=== PATIENT | male | born 1965 | race American Indian/Alaskan Native ===

== ENCOUNTER 2016-11-03 19:10 | Inpatient (IN) | payer OTHER ==
[2016-11-03] MEDS ORDERED: Sodium Chloride 0.9% 1,000 ML IV ONE (20:20)
[2016-11-03] MEDS ORDERED: Sodium Chloride 0.9% 1,000 ML ONE ×2 (20:39→22:33)
[2016-11-03 20:41] LABS: BASO % 0.4 % (0.0-2.0); EOS # 0.1 K/uL (0.0-0.7); EOS % 0.9 % (0.0-4.0); HEMOGLOBIN 15.9 g/dL (12.0-18.0); LYMPH # 0.9 K/uL (1.0-4.3); LYMPH % 11.2 % (20.0-40.0); MEAN CELL VOLUME 98.4 fL (80.0-94.0); MEAN CORPUSCULAR HEMOGLOBIN 32.8 pg (27.0-31.0); MEAN CORPUSCULAR HGB CONC 33.4 g/dL (33.0-37.0); MEAN PLATELET VOLUME 10.7 fL (7.2-11.7); MONO # 0.7 K/uL (0.0-0.8); MONO % 8.2 % (0.0-10.0); NEUT # 6.5 K/uL (1.8-7.0); NEUT % 79.3 % (50.0-75.0); RBC 4.83 Mil/uL (4.40-5.90); RED CELL DISTRIBUTION WIDTH 14.1 % (11.5-14.5); WHITE BLOOD COUNT 8.2 K/uL (4.8-10.8)
[2016-11-03 20:48] LABS: SQUAMOUS EPITHIAL < 1 /hpf (0-5); URINE BACTERIA RARE (<OCC); URINE BILIRUBIN NEGATIVE (NEGATIVE); URINE BLOOD NEGATIVE (NEGATIVE); URINE CLARITY Clear (Clear); URINE COLOR Yellow (YELLOW); URINE GLUCOSE (UA) 3+ mg/dL (Normal); URINE LEUKOCYTE ESTERASE TRACE Leu/uL (Negative); URINE NITRATE NEGATIVE (NEGATIVE); URINE PROTEIN 2+ mg/dL (NEGATIVE); URINE UROBILINOGEN NORMAL mg/dL (0.2-1.0)
[2016-11-03 20:49] LABS: ALBUMIN 4.4 g/dL (3.5-5.0)
[2016-11-03 20:51] LABS: GFR AFRICAN-AMERICAN > 60; GFR NON-AFRICAN AMERICAN > 60
[2016-11-03 20:52] LABS: ALB/GLOB RATIO 1.2 (1.0-2.1); ALT/SGPT 30 U/L (21-72); AST/SGOT 18 U/L (17-59); BLOOD UREA NITROGEN 22 mg/dL (9-20); CALCIUM 10.1 mg/dl (8.6-10.4); LIPASE 1420 U/L (23-300)
[2016-11-03 20:54] LABS: PROTHROMBIN TIME 11.4 SECONDS (9.7-12.2)
--- NOTE | 2016-11-03 22:04 | US ---
EXAM: US Abdomen Limited, Right Upper Quadrant CLINICAL HISTORY: 51 years old, male; Pain; Abdominal pain; Epigastric; Additional info: Epigastric/ruq pain TECHNIQUE: Real-time ultrasound of the right upper quadrant with image documentation. EXAM DATE/TIME: 11/03/2016 8:22 PM COMPARISON: There are no prior studies for comparison. FINDINGS: Liver: Texture of the liver is heterogeneous. There are geographic regions of increased attenuation. There is a 2.2 x 1.7 x 2 cm cyst in the chaparro hepatis.There is hepatopedal flow in the main portal vein. Gallbladder: Gallbladder is distended with no stones, sludge or wall thickening. Common bile duct: Common bile duct measures 5.5 mm in diameter. Pancreas: Pancreas is partially obscured by bowel gas. Visualized portion is echogenic. Pancreatic duct is dilated Right kidney: Right kidney is unremarkable Aorta: Visualized portions of the aorta and inferior vena cava are unremarkable. IMPRESSION: Fatty infiltration of the liver with focal fatty sparing; no gallstones or biliary ductal dilatation; limited evaluation of the pancreas, dilated pancreatic duct correlation with pancreatic enzyme levels advised Patient was not tender over the gallbladder
--- NOTE | 2016-11-03 22:18 | C.PDOC ---
Time Seen by Provider: 11/03/16 19:54 Chief Complaint (Nursing): Abdominal Pain History Per: Patient, Family Onset/Duration Of Symptoms: Days (4) Severity: Moderate Location Of Pain/Discomfort: RUQ, Epigastric Radiation Of Pain To:: None Quality Of Discomfort: "Pain" Associated Symptoms: Nausea, Vomiting Exacerbating Factors: Food Alleviating Factors: None Last Bowel Movement: Days Ago (4) Additional History Per: Prior Records Past Medical History Reviewed: Historical Data, Nursing Documentation, Vital Signs Vital Signs: Last Vital Signs Temp 97.8 F 11/03/16 19:17 Pulse 110 H 11/03/16 19:17 Resp 18 11/03/16 19:17 BP 140/100 H 11/03/16 19:17 Pulse Ox 99 11/03/16 19:17 - Medical History PMH: Diabetes, HTN, Pancreatitis Surgical History: Appendectomy Family History: States: Unknown Family Hx - Social History Hx Tobacco Use: Yes Hx Alcohol Use: Yes Hx Substance Use: No Review Of Systems Except As Marked, All Systems Reviewed And Found Negative. Constitutional: Negative for: Fever, Weakness Cardiovascular: Negative for: Chest Pain Respiratory: Negative for: Shortness of Breath Gastrointestinal: Positive for: Nausea, Vomiting, Abdominal Pain. Negative for : Diarrhea, Melena, Hematochezia, Hematemesis Genitourinary: Negative for: Dysuria, Hematuria Musculoskeletal: Negative for: Neck Pain, Back Pain Skin: Negative for: Rash Neurological: Negative for: Weakness, Numbness Physical Exam - Physical Exam Appears: No Acute Distress Skin: Normal Color, Warm, Dry, No Rash Head: Atraumatic, Normacephalic Eye(s): bilateral: Normal Inspection, PERRL, EOMI Neck: Normal ROM, Supple Cardiovascular: Rhythm Regular Respiratory: Normal Breath Sounds, No Accessory Muscle Use Gastrointestinal/Abdominal: Soft, Tenderness (Epigastric/RUQ) Back: No CVA Tenderness Extremity: Normal ROM Neurological/Psych: Oriented x3, Normal Motor, Normal Sensation ED Course And Treatment - Laboratory Results Result Diagrams: 11/03/16 20:37 11/03/16 20:37 Lab Interpretation: Abnormal Interpretation Of Abnormal: Elevated Lipase. Hyperglycemia. O2 Sat by Pulse Oximetry: 99 Pulse Ox Interpretation: Normal - Radiology CXR: Interpreted by Me, Viewed By Me CXR Interpretation: Yes: No Acute Disease - CT Scan/US RUQ Sono Other Rad Studies (CT/US): Read By Radiologist, Radiology Report Reviewed CT/US Interpretation: IMPRESSION: Fatty infiltration of the liver with focal fatty sparing; no. gallstones or biliary ductal dilatation; limited evaluation of the pancreas,. dilated pancreatic duct correlation with pancreatic enzyme levels advised Obstructed Series Other Rad Studies (CT/US): Read By Radiologist, Radiology Report Reviewed CT/US Interpretation: NSBGP Progress - Interventions Interventions:: Observation, Intravenous fluid - Medications Administered Intravenous: Antiemetic, Opiate, Other (PPI) - Data Reviewed Data Reviewed: Lab, Diagnostic imaging, Old records - Patient Status Patient status: Partially improved - Continuity of Care Discussed patient case with:: Patient, Family-HIPPA compliant, ED Nurse, On- call PMD-pt unassigned - Patient Plan Patient Plan: Admission Disposition Discussed With : Anibal Dewitt Comment: He accepted pt on his service. Doctor Will See Patient In The: Hospital Counseled Patient/Family Regarding: Studies Performed, Diagnosis - Disposition Disposition: HOSPITALIZED Disposition Time: 22:21 Condition: SERIOUS - POA Present On Arrival: Poor Glycemic Control - Clinical Impression Clinical Impression: Acute pancreatitis, Pancreatic duct dilated, Uncontrolled diabetes mellitus
[2016-11-03] MEDS ORDERED: Morphine 4 MG/ML VIAL ONE (22:32)
[2016-11-03] MEDS: Sodium Chloride 0.9% 1,000 ML IV SCH (22:46)
[2016-11-04 02:04] LABS: BARBITURATES, UR NEGATIVE (NEGATIVE); BENZODIAZEPINES, UR NEGATIVE (NEGATIVE); OPIATES, UR NEGATIVE (NEGATIVE); PHENCYCLIDINE, UR NEGATIVE (NEGATIVE)
[2016-11-04] MEDS: (Novolin R) Insulin Human Regular 100 units/ml vial SC SCH ×4 (08:20→21:26)
[2016-11-04] MEDS: Sodium Chloride 0.9% 1,000 ML IV SCH (08:22)
[2016-11-04] MEDS: Lactated Ringer's 1,000 ML IV SCH ×4 (09:45→21:26)
[2016-11-04] MEDS: Enoxaparin 30 mg Syringe SC SCH (10:41)
--- NOTE | 2016-11-04 12:32 | RAD ---
PROCEDURE: Radiographs of the chest and abdomen (obstructive series) HISTORY: abd pain, vomiting COMPARISON: No prior. TECHNIQUE: AP radiograph of the chest, with upright and supine radiographs of the abdomen. FINDINGS: CHEST: Lungs: Clear. Cardiovascular: Normal size heart. No pulmonary vascular congestion. Pleura: No pleural fluid. No pneumothorax. Other findings: None. ABDOMEN AND PELVIS: Bowel: Unremarkable bowel gas pattern. No evidence of mechanical obstruction. Free air: None. Bones: Unremarkable. Other findings: No suspicious intra-abdominal calcifications. IMPRESSION: Unremarkable radiographs of chest and abdomen. No evidence of mechanical bowel obstruction.
--- NOTE | 2016-11-04 16:01 | CP.PCM.CON ---
<Taylor Monson - Last Filed: 11/04/16 16:11> History of Present Illness - History of Present Illness History of Present Illness: GI Fellow PGY4 Consult Note This is a 51yM with a pmhx of pancreatitis in the 1980s and due to alcohol use, DM, HTN. Pt pw co abdominal pain, N/V since Monday. Pain has progressively gotten worse so decided to come to ER. Pain is in the epigastric area with radiation to back and assoicted N/V unable to tolerate liquids or solids. Pt reports is last drink was Monday with a 16 oz beer and that he only drinks two 160z beers on weekends. Pt denies any complications from prior pancreatitis and did not require any drainage or antibiotic therapy. Pt has not had any prior EGD/Colonoscopy. ROS: A 12pt ROS was obtained and was negative except as mentioned above. PmHx: As stated in HPI PsHx: Appendectomy FHx: negative for liver/pancreatic disease, no colon CA SHx: positive for tobacco use, positive for ETOH two 16oz beers on weekends only , no illicit drug use Past Patient History - Infectious Disease Hx of Infectious Diseases: None - Past Medical History & Family History Past Medical History?: Yes - Past Social History Smoking Status: Current Some Days Smoker - CARDIAC Hx Cardiac Disorders: Yes Hx Hypertension: Yes - PULMONARY Hx Respiratory Disorders: No - NEUROLOGICAL Hx Neurological Disorder: No - HEENT Hx HEENT Problems: No Other/Comment: Wears Eyeglasses for distance - RENAL Hx Chronic Kidney Disease: No - ENDOCRINE/METABOLIC Hx Endocrine Disorders: Yes Hx Diabetes Mellitus Type 2: Yes - HEMATOLOGICAL/ONCOLOGICAL Hx Blood Disorders: No - INTEGUMENTARY Hx Dermatological Problems: No - MUSCULOSKELETAL/RHEUMATOLOGICAL Hx Musculoskeletal Disorders: No Hx Falls: No - GASTROINTESTINAL Hx Gastrointestinal Disorders: Yes Hx Pancreatitis: Yes - GENITOURINARY/GYNECOLOGICAL Hx Genitourinary Disorders: No - PSYCHIATRIC Hx Substance Use: Yes (Last use 2010-Heroin) - SURGICAL HISTORY Hx Surgeries: Yes Hx Appendectomy: Yes - ANESTHESIA Hx Anesthesia: Yes Hx Anesthesia Reactions: No Hx Malignant Hyperthermia: No Has any member of the family had a problem w/ anesthesia?: No Meds Allergies/Adverse Reactions: Allergies Allergy/AdvReac Type Severity Reaction Status Date / Time seafood Allergy Uncoded 11/03/16 19:16 - Medications Medications: Current Medications Enoxaparin Sodium (Lovenox) 30 mg SC DAILY [facility] Last Admin: 11/04/16 10:41 Dose: 30 mg Famotidine (Pepcid) 20 mg IVP Q12 [facility] Last Admin: 11/04/16 10:42 Dose: 20 mg Lactated Ringer's (Lactated Ringer's) 1,000 mls @ 250 mls/hr IV .Q4H [facility] Last Admin: 11/04/16 14:50 Dose: 250 mls/hr Insulin Human Regular (Novolin R) 0 unit SC ACHS [facility] PRN Reason: Protocol Last Admin: 11/04/16 11:58 Dose: Not Given Morphine Sulfate (Morphine) 2 mg IVP Q4 PRN PRN Reason: Pain, moderate (4-7) Last Admin: 11/04/16 06:57 Dose: 2 mg Ondansetron HCl (Zofran Inj) 4 mg IVP Q4 PRN PRN Reason: Pain, moderate (4-7) Physical Exam - Constitutional Appears: Non-toxic Additional comments: Uncomfortable - Head Exam Head Exam: ATRAUMATIC, NORMAL INSPECTION, NORMOCEPHALIC - Eye Exam Eye Exam: EOMI, Normal appearance, PERRL Pupil Exam: PERRL - ENT Exam ENT Exam: Mucous Membranes Moist, Normal Exam - Neck Exam Neck exam: Positive for: Full Rom, Normal Inspection - Respiratory Exam Respiratory Exam: Clear to Auscultation Bilateral, NORMAL BREATHING PATTERN - Cardiovascular Exam Cardiovascular Exam: REGULAR RHYTHM, RRR, +S1, +S2 - GI/Abdominal Exam GI & Abdominal Exam: Normal Bowel Sounds, Soft, Tenderness. absent: Distended, Organomegaly Additional comments: Moderate TTP epigastric - Rectal Exam Rectal Exam: Deferred - Extremities Exam Extremities exam: Positive for: full ROM, normal inspection. Negative for: pedal edema, tenderness - Back Exam Back exam: NORMAL INSPECTION, tenderness - Neurological Exam Neurological exam: Alert, Oriented x3 - Psychiatric Exam Psychiatric exam: Normal Affect, Normal Mood - Skin Skin Exam: Dry, Intact, Normal Color, Warm Results - Vital Signs Recent Vital Signs: Last Vital Signs Temp 98.5 F 11/04/16 07:59 Pulse 86 11/04/16 07:59 Resp 20 11/04/16 07:59 BP 133/86 11/04/16 07:59 Pulse Ox 98 11/04/16 07:59 - Labs Result Diagrams: 11/03/16 20:37 11/03/16 20:37 Labs: Laboratory Results - last 24 hr 11/04/16 11/04/16 11/04/16 01:24 01:34 06:30 POC Glucose (mg/dL) 254 H 192 H Urine Opiates Screen Negative Urine Methadone Screen Negative Ur Barbiturates Screen Negative Ur Phencyclidine Scrn Negative Ur Amphetamines Screen Negative U Benzodiazepines Scrn Negative U Oth Cocaine Metabols Negative U Cannabinoids Screen Negative 11/04/16 11:11 POC Glucose (mg/dL) 204 H Urine Opiates Screen Urine Methadone Screen Ur Barbiturates Screen Ur Phencyclidine Scrn Ur Amphetamines Screen U Benzodiazepines Scrn U Oth Cocaine Metabols U Cannabinoids Screen Assessment & Plan - Assessment and Plan (Free Text) Assessment: This is a 51 yM with a pmHx of 2 prior episodes of pancreatitis, HTN, DM, pw co abdominal pain, N/V. 1. Acute Pancreatitis 2. Dilated Pancreatic Duct on Imaging 3. HTN 4. DM Plan: -Acute Pancreatitis likely from alcohol, no sign of gallstones on imaging, will order lipid profile -Continue aggressive IVF hydration with LR @ 250 cc/hr, monitor BUN/Hct -Continue pain control -NPO -Will order CT scan Pancreatic Protocol to evaluate pancreas for any calcifications and since pancreatic duct dilation on US, increased risk of malignancy with recurrent pancreatitis -Pt has allergy to all seafood so will pre-medicate with prednisone 50mg at 13hrs, 7hrs, 1 hr prior to scan and Benadryl 50mg 1hr prior -Will continue to follow clinical course <Etienne Dacosta - Last Filed: 11/04/16 19:06> Meds - Medications Medications: Current Medications Diphenhydramine HCl (Benadryl) 50 mg PO ONCE ONE Stop: 11/05/16 08:01 Enoxaparin Sodium (Lovenox) 30 mg SC DAILY [facility] Last Admin: 11/04/16 10:41 Dose: 30 mg Famotidine (Pepcid) 20 mg IVP Q12 [facility] Last Admin: 11/04/16 10:42 Dose: 20 mg Lactated Ringer's (Lactated Ringer's) 1,000 mls @ 250 mls/hr IV .Q4H [facility] Last Admin: 11/04/16 14:50 Dose: 250 mls/hr Insulin Human Regular (Novolin R) 0 unit SC ACHS [facility] PRN Reason: Protocol Last Admin: 11/04/16 17:43 Dose: Not Given Morphine Sulfate (Morphine) 2 mg IVP Q4 PRN PRN Reason: Pain, moderate (4-7) Last Admin: 11/04/16 06:57 Dose: 2 mg Ondansetron HCl (Zofran Inj) 4 mg IVP Q4 PRN PRN Reason: Pain, moderate (4-7) Prednisone (Prednisone Tab) 40 mg PO Q6H [facility] Stop: 11/05/16 08:01 Prednisone (Prednisone Tab) 10 mg PO Q6H [facility] Stop: 11/05/16 08:01 Results - Vital Signs Recent Vital Signs: Last Vital Signs Temp 98.2 F 11/04/16 15:51 Pulse 90 11/04/16 15:51 Resp 18 11/04/16 15:51 BP 147/88 11/04/16 15:51 Pulse Ox 98 11/04/16 15:51 - Labs Result Diagrams: 11/03/16 20:37 11/03/16 20:37 Labs: Laboratory Results - last 24 hr 11/04/16 11/04/16 11/04/16 01:24 01:34 06:30 POC Glucose (mg/dL) 254 H 192 H Urine Opiates Screen Negative Urine Methadone Screen Negative Ur Barbiturates Screen Negative Ur Phencyclidine Scrn Negative Ur Amphetamines Screen Negative U Benzodiazepines Scrn Negative U Oth Cocaine Metabols Negative U Cannabinoids Screen Negative 11/04/16 11/04/16 11:11 16:32 POC Glucose (mg/dL) 204 H 183 H Urine Opiates Screen Urine Methadone Screen Ur Barbiturates Screen Ur Phencyclidine Scrn Ur Amphetamines Screen U Benzodiazepines Scrn U Oth Cocaine Metabols U Cannabinoids Screen Attending/Attestation - Attestation I have personally seen and examined this patient.: Yes I have fully participated in the care of the patient.: Yes I have reviewed all pertinent clinical information: Yes Notes (Text): 11/04/16 19:04 51 year old male with a h/o pancreatitis, DM, HTN admitted with recurrent pancreatitis. 1. Acute Pancreatitis 2. Dilated pancreatic duct Plan: -most likely etoh pancreatitis, though patient doesn't admit to heavy binge drinking, only "social" -no gallstones, check trig -PD dilated, recommend CT panc protocol, may premedicate due to possible shellfish allergy -recommend aggressive IV hydration with LR at 250 /hr as above -etoh and smoking abstinence recommended -npo for now -advance to low fat diet when pain improves
--- NOTE | 2016-11-04 23:12 | CP.PCM.HP ---
History of Present Illness - History of Present Illness History of Present Illness: CC; Epigastric pain HPI: This is a 51yM with a pmhx of pancreatitis in the 1980s and due to alcohol use, DM, HTN. Pt pw co abdominal pain, N/V since Monday. Pain has progressively gotten worse so decided to come to ER. Pain is in the epigastric area with radiation to back and assoicted N/V unable to tolerate liquids or solids. Pt reports is last drink was Monday with a 16 oz beer and that he only drinks two 160z beers on weekends. Pt denies any complications from prior pancreatitis and did not require any drainage or antibiotic therapy. Pt has not had any prior EGD/Colonoscopy. ROS: A 12pt ROS was obtained and was negative except as mentioned above. PmHx: As stated in HPI PsHx: Appendectomy FHx: negative for liver/pancreatic disease, no colon CA SHx: positive for tobacco use, positive for ETOH two 16oz beers on weekends only , no illicit drug use Present on Admission - Present on Admission Any Indicators Present on Admission: Yes Review of Systems - Review of Systems Systems not reviewed;Unavailable: Unstable Vital Signs - Constitutional Constitutional: Fatigue, Fever, Lethargy, Malaise - EENT Eyes: absent: As Per HPI, Blind Spots, Blurred Vision, Change in Vision, Decreased Night Vision, Diplopia, Discharge, Dry Eye, Exophthalmos, Floaters, Irritation, Itchy Eyes, Loss of Peripheral Vision, Pain, Photophobia, Requires Corrective Lenses, Sees Flashes, Spots in Vision, Tunnel Vision, Other Visual Disturbances, Loss of Vision, Other Nose/Mouth/Throat: absent: As Per HPI, Epistaxis, Nasal Congestion, Nasal Discharge, Nasal Obstruction, Nasal Trauma, Nose Pain, Post Nasal Drip, Sinus Pain, Sinus Pressure, Bleeding Gums, Change in Voice, Dental Pain, Dry Mouth, Dysphagia, Halitosis, Hoarsness, Lip Swelling, Mouth Lesions, Mouth Pain, Odynophagia, Sore Throat, Throat Swelling, Tongue Swelling, Facial Pain, Neck Pain, Neck Mass, Other - Gastrointestinal Gastrointestinal: Abdominal Pain, Diarrhea, Dyspepsia - Genitourinary Genitourinary: absent: As Per HPI, Change in Urinary Stream, Difficulty Urinating, Dysuria, Flank Pain, Hematuria, Pyuria, Nocturia, Urinary Incontinence, Urinary Frequency, Urinary Hesitance, Urinary Urgency, Voiding Freq/Small Amts, Freq UTI, Hx Renal/Bladder Calculi, Hx /Renal Surgery, Bladder Distension, Other Past Patient History - Infectious Disease Hx of Infectious Diseases: None - Past Medical History & Family History Past Medical History?: Yes - Past Social History Smoking Status: Current Some Days Smoker - CARDIAC Hx Cardiac Disorders: Yes Hx Hypertension: Yes - PULMONARY Hx Respiratory Disorders: No - NEUROLOGICAL Hx Neurological Disorder: No - HEENT Hx HEENT Problems: No Other/Comment: Wears Eyeglasses for distance - RENAL Hx Chronic Kidney Disease: No - ENDOCRINE/METABOLIC Hx Endocrine Disorders: Yes Hx Diabetes Mellitus Type 2: Yes - HEMATOLOGICAL/ONCOLOGICAL Hx Blood Disorders: No - INTEGUMENTARY Hx Dermatological Problems: No - MUSCULOSKELETAL/RHEUMATOLOGICAL Hx Musculoskeletal Disorders: No Hx Falls: No - GASTROINTESTINAL Hx Gastrointestinal Disorders: Yes Hx Pancreatitis: Yes - GENITOURINARY/GYNECOLOGICAL Hx Genitourinary Disorders: No - PSYCHIATRIC Hx Substance Use: Yes (Last use 2010-Heroin) - SURGICAL HISTORY Hx Surgeries: Yes Hx Appendectomy: Yes - ANESTHESIA Hx Anesthesia: Yes Hx Anesthesia Reactions: No Hx Malignant Hyperthermia: No Has any member of the family had a problem w/ anesthesia?: No Meds Allergies/Adverse Reactions: Allergies Allergy/AdvReac Type Severity Reaction Status Date / Time seafood Allergy Uncoded 11/03/16 19:16 Physical Exam - Constitutional Appears: No Acute Distress - Head Exam Head Exam: ATRAUMATIC, NORMAL INSPECTION, NORMOCEPHALIC - Eye Exam Eye Exam: EOMI, Normal appearance, PERRL Pupil Exam: NORMAL ACCOMODATION, PERRL - Cardiovascular Exam Cardiovascular Exam: REGULAR RHYTHM - GI/Abdominal Exam GI & Abdominal Exam: Normal Bowel Sounds, Tenderness Additional comments: epigastric tenderness - Rectal Exam Rectal Exam: Deferred Results - Vital Signs Recent Vital Signs: Last Vital Signs Temp 98.2 F 11/04/16 15:51 Pulse 90 11/04/16 15:51 Resp 18 11/04/16 15:51 BP 147/88 11/04/16 15:51 Pulse Ox 98 11/04/16 15:51 - Labs Result Diagrams: 11/03/16 20:37 11/03/16 20:37 Labs: Laboratory Results - last 24 hr 11/04/16 11/04/16 11/04/16 01:24 01:34 06:30 POC Glucose (mg/dL) 254 H 192 H Urine Opiates Screen Negative Urine Methadone Screen Negative Ur Barbiturates Screen Negative Ur Phencyclidine Scrn Negative Ur Amphetamines Screen Negative U Benzodiazepines Scrn Negative U Oth Cocaine Metabols Negative U Cannabinoids Screen Negative 11/04/16 11/04/16 11/04/16 11:11 16:32 21:05 POC Glucose (mg/dL) 204 H 183 H 236 H Urine Opiates Screen Urine Methadone Screen Ur Barbiturates Screen Ur Phencyclidine Scrn Ur Amphetamines Screen U Benzodiazepines Scrn U Oth Cocaine Metabols U Cannabinoids Screen Assessment & Plan (1) Acute pancreatitis Assessment and Plan: 51 year old male with a h/o pancreatitis, DM, HTN admitted with recurrent pancreatitis. 1. Acute Pancreatitis 2. Dilated pancreatic duct Plan: -most likely etoh pancreatitis, though patient doesn't admit to heavy binge drinking, only "social" -no gallstones, check trig -PD dilated, recommend CT panc protocol, may premedicate due to possible shellfish allergy -recommend aggressive IV hydration with LR at 250 /hr as above -etoh and smoking abstinence recommended -npo for now -advance to low fat diet when pain improves Status: Acute (2) Pancreatic duct dilated Status: Acute (3) Uncontrolled diabetes mellitus Status: Acute
[2016-11-05] MEDS: Lactated Ringer's 1,000 ML IV SCH ×3 (02:27→23:59)
[2016-11-05] MEDS: (Novolin R) Insulin Human Regular 100 units/ml vial SC SCH ×4 (08:00→21:51)
[2016-11-05 08:41] LABS: BASO % 0.1 % (0.0-2.0); HEMOGLOBIN 13.1 g/dL (12.0-18.0); LYMPH # 0.5 K/uL (1.0-4.3); LYMPH % 8.4 % (20.0-40.0); MEAN CELL VOLUME 98.1 fL (80.0-94.0); MEAN CORPUSCULAR HEMOGLOBIN 33.1 pg (27.0-31.0); MEAN CORPUSCULAR HGB CONC 33.8 g/dL (33.0-37.0); MEAN PLATELET VOLUME 10.5 fL (7.2-11.7); MONO # 0.1 K/uL (0.0-0.8); MONO % 1.6 % (0.0-10.0); NEUT # 5.1 K/uL (1.8-7.0); NEUT % 89.9 % (50.0-75.0); PLATELET COUNT 179 K/uL (130-400); RBC 3.96 Mil/uL (4.40-5.90); RED CELL DISTRIBUTION WIDTH 14.1 % (11.5-14.5); WHITE BLOOD COUNT 5.7 K/uL (4.8-10.8)
[2016-11-05 08:45] LABS: ALBUMIN 3.3 g/dL (3.5-5.0)
[2016-11-05 08:48] LABS: ALB/GLOB RATIO 1.1 (1.0-2.1); AST/SGOT 18 U/L (17-59); BLOOD UREA NITROGEN 14 mg/dL (9-20)
[2016-11-05 08:49] LABS: ALT/SGPT 22 U/L (21-72); CALCIUM 8.9 mg/dl (8.6-10.4); HDL CHOLESTEROL 41 mg/dL (30-70)
[2016-11-05 09:03] LABS: GFR AFRICAN-AMERICAN > 60; GFR NON-AFRICAN AMERICAN > 60
[2016-11-05] MEDS: Enoxaparin 30 mg Syringe SC SCH (09:15)
[2016-11-05] MEDS ORDERED: Iodixanol 320 MG/ML 100 ML BOTTLE IV ONE (10:53)
[2016-11-05 11:56] LABS: LYMPHOCYTE 6 % (20-40); MONOCYTE 1 % (0-10); NEUTROPHIL 93 % (50-75); PLATELET ESTIMATE NORMAL (NORMAL); TOTAL CELLS COUNTED 100
[2016-11-05 11:57] LABS: ANISOCYTOSIS SLIGHT; LARGE PLATELETS PRESENT
[2016-11-05 11:58] LABS: GIANT PLATELETS PRESENT
[2016-11-05 12:00] LABS: LDL CHOLESTEROL 125 mg/dL (0-129)
--- NOTE | 2016-11-05 12:15 | CP.PCM.PN ---
<Alvin Cruz - Last Filed: 11/05/16 12:11> Subjective - Date & Time of Evaluation Date of Evaluation: 11/05/16 Time of Evaluation: 10:55 - Subjective Subjective: PGY5 GI Fellow Progress Note Patient seen and examined bedside this morning. The patient admits to persistent epigastric abdominal pain though states significant improvement since admission. He was pre-medicated with Prednisone and Benadryl overnight/ this morning and is about to go for CT pancreatic protocol. He is hungry and asking for liquid diet. Denies nausea, vomiting, fever, chills. 12 system ROS performed and negative except where stated. Objective - Vital Signs/Intake and Output Vital Signs (last 24 hours): Temp Pulse Resp BP Pulse Ox 98.3 F 77 18 154/94 H 96 11/05/16 07:50 11/05/16 07:50 11/05/16 07:50 11/05/16 07:50 11/05/16 07:50 Intake and Output: 11/05/16 11/05/16 06:59 18:59 Output Total 200 Balance -200 - Medications Medications: Current Medications Enoxaparin Sodium (Lovenox) 30 mg SC DAILY [facility] Last Admin: 11/05/16 09:15 Dose: 30 mg Famotidine (Pepcid) 20 mg IVP Q12 [facility] Last Admin: 11/05/16 09:11 Dose: 20 mg Lactated Ringer's (Lactated Ringer's) 1,000 mls @ 250 mls/hr IV .Q4H [facility] Last Admin: 11/05/16 02:27 Dose: 250 mls/hr Insulin Human Regular (Novolin R) 0 unit SC ACHS [facility] PRN Reason: Protocol Last Admin: 11/05/16 08:00 Dose: Not Given Morphine Sulfate (Morphine) 2 mg IVP Q4 PRN PRN Reason: Pain, moderate (4-7) Last Admin: 11/04/16 21:24 Dose: 2 mg Ondansetron HCl (Zofran Inj) 4 mg IVP Q4 PRN PRN Reason: Pain, moderate (4-7) - Labs Labs: 11/05/16 08:19 11/05/16 08:19 PT 11.4 SECONDS (9.7-12.2) 11/03/16 20:37 INR 1.0 11/03/16 20:37 APTT 26 SECONDS (21-34) 11/03/16 20:37 - Constitutional Appears: Non-toxic, No Acute Distress - Eye Exam Eye Exam: EOMI, PERRL - ENT Exam ENT Exam: Mucous Membranes Moist - Respiratory Exam Respiratory Exam: Clear to Ausculation Bilateral. absent: Rales, Rhonchi, Wheezes - Cardiovascular Exam Cardiovascular Exam: RRR, +S1, +S2 - GI/Abdominal Exam GI & Abdominal Exam: Soft, Tenderness, Normal Bowel Sounds. absent: Distended, Firm, Guarding, Rigid, Organomegaly - Extremities Exam Extremities Exam: Normal Inspection. absent: Pedal Edema - Neurological Exam Neurological Exam: Alert, Awake, Oriented x3 - Psychiatric Exam Psychiatric exam: Normal Affect, Normal Mood - Skin Skin Exam: Dry, Warm Assessment and Plan - Assessment and Plan (Free Text) Assessment: Patient is a 51yo male with PMHx significant for EtOH pancreatitis, DM, HTN who presented with acute abdominal pain. -Acute Pancreatitis -Dilated pancreatic duct on U/S Plan: -Awaiting results of CT pancreatic protocol; was pre-treated with Benadryl/ Prednisone overnight -Suspect EtOH as etiology of current event; recommend cessation -Continue aggressive IV fluid resuscitation -Begin liquid diet today; advance as tolerated to low fiber/low fat -Analgesia/antiemetics per primary service -Plan per results of CT and clinical course <Triny Navas MD - Last Filed: 11/05/16 15:37> Objective - Vital Signs/Intake and Output Vital Signs (last 24 hours): Temp Pulse Resp BP Pulse Ox 98.3 F 77 18 154/94 H 96 11/05/16 07:50 11/05/16 07:50 11/05/16 07:50 11/05/16 07:50 11/05/16 07:50 Intake and Output: 11/05/16 11/05/16 06:59 18:59 Output Total 200 Balance -200 - Medications Medications: Current Medications Enoxaparin Sodium (Lovenox) 30 mg SC DAILY [facility] Last Admin: 11/05/16 09:15 Dose: 30 mg Famotidine (Pepcid) 20 mg IVP Q12 [facility] Last Admin: 11/05/16 09:11 Dose: 20 mg Lactated Ringer's (Lactated Ringer's) 1,000 mls @ 250 mls/hr IV .Q4H [facility] Last Admin: 11/05/16 02:27 Dose: 250 mls/hr Insulin Human Regular (Novolin R) 0 unit SC ACHS [facility] PRN Reason: Protocol Last Admin: 11/05/16 12:38 Dose: Not Given Morphine Sulfate (Morphine) 2 mg IVP Q4 PRN PRN Reason: Pain, moderate (4-7) Last Admin: 11/04/16 21:24 Dose: 2 mg Ondansetron HCl (Zofran Inj) 4 mg IVP Q4 PRN PRN Reason: Pain, moderate (4-7) - Labs Labs: 11/05/16 08:19 11/05/16 08:19 PT 11.4 SECONDS (9.7-12.2) 11/03/16 20:37 INR 1.0 11/03/16 20:37 APTT 26 SECONDS (21-34) 11/03/16 20:37 Attending/Attestation - Attestation I have personally seen and examined this patient.: Yes I have fully participated in the care of the patient.: Yes I have reviewed all pertinent clinical information, including history, physical exam and plan: Yes Notes (Text): 11/05/16 15:28 Patient seen and examined at bedside on GI rounds. 51 year old male with a h/o pancreatitis, DM, HTN admitted with recurrent pancreatitis with pancreatic protocol CT showing chronic pancreatitis. Continue aggressive hydration. Advance diet as tolerated. Smoking and alcohol cessation.
--- NOTE | 2016-11-05 13:10 | CT ---
PROCEDURE: CT Abdomen and Pelvis with and without intravenous contrast HISTORY: acute pancreatitis COMPARISON: Comparison is made to the previous right upper quadrant ultrasound dated 11/03/2016 TECHNIQUE: Axial images of the abdomen were obtained in the pre contrast, portal venous and delayed phases of enhancement. Coronal and sagittal reformats were generated. Contrast dose: 100 mL Visipaque. Radiation dose: Total exam DLP = 709.88 mGy-cm. This CT exam was performed using one or more of the following dose reduction techniques: Automated exposure control, adjustment of the mA and/or kV according to patient size, and/or use of iterative reconstruction technique. FINDINGS: LOWER THORAX: No evidence of acute pathology. LIVER: Unremarkable. No gross lesion or ductal dilatation. GALLBLADDER AND BILE DUCTS: Unremarkable. PANCREAS: The pancreas is heterogeneous. Severe atrophic changes are seen in the pancreas associated with moderate dietitian of the main pancreatic duct especially at the pancreatic tail. There are foci of calcifications seen suggestive of chronic pancreatitis. No evidence of enhancing mass lesion in the pancreas P SPLEEN: Unremarkable. ADRENALS: Unremarkable. No mass. KIDNEYS AND URETERS: Unremarkable. No hydronephrosis. No solid mass. VASCULATURE: Unremarkable. No aortic aneurysm. BOWEL: Unremarkable. No obstruction. No gross mural thickening. APPENDIX: Normal appendix. PERITONEUM: Unremarkable. No free fluid. No free air. LYMPH NODES: Unremarkable. No enlarged lymph nodes. BLADDER: Diffuse urinary bladder wall thickening is noted. REPRODUCTIVE: [id number] enlarged prostate. BONES: No acute fracture. OTHER FINDINGS: None. IMPRESSION: Heterogeneous attenuation of the pancreas. Severe pancreatic atrophy associated with moderate dilatation of the main pancreatic duct. Mild inflammatory changes around the pancreatic body and tail suspicious for pancreatitis. Foci of calcification in the pancreas also suggestive of chronic pancreatitis. No evidence of enhancing mass lesion in the pancreas. If clinically warranted further assessment by MRI may be obtained.
[2016-11-05] MEDS ORDERED: Potassium Chloride 20 mEq/15 ml LIQ UD PO ONE (21:30)
[2016-11-06] MEDS: Lactated Ringer's 1,000 ML IV SCH ×3 (00:45→09:12)
--- NOTE | 2016-11-06 01:38 | CP.PCM.PN ---
Subjective - Date & Time of Evaluation Date of Evaluation: 11/05/16 Time of Evaluation: 18:00 - Subjective Subjective: Patient seen and examined bedside this morning. The patient admits to persistent epigastric abdominal pain though states significant improvement since admission. He was pre-medicated with Prednisone and Benadryl overnight/ this morning and is about to go for CT pancreatic protocol. He is hungry and asking for liquid diet. Denies nausea, vomiting, fever, chills. Objective - Vital Signs/Intake and Output Vital Signs (last 24 hours): Temp Pulse Resp BP Pulse Ox 98.2 F 73 20 136/81 99 11/05/16 23:50 11/05/16 23:50 11/05/16 23:50 11/05/16 23:50 11/05/16 23:50 Intake and Output: 11/05/16 11/06/16 18:59 06:59 Intake Total 1999 Balance 1999 - Medications Medications: Current Medications Enoxaparin Sodium (Lovenox) 30 mg SC DAILY [facility] Last Admin: 11/05/16 09:15 Dose: 30 mg Famotidine (Pepcid) 20 mg IVP Q12 [facility] Last Admin: 11/05/16 21:52 Dose: 20 mg Lactated Ringer's (Lactated Ringer's) 1,000 mls @ 250 mls/hr IV .Q4H [facility] Last Admin: 11/05/16 23:59 Dose: 250 mls/hr Insulin Human Regular (Novolin R) 0 unit SC ACHS [facility] PRN Reason: Protocol Last Admin: 11/05/16 21:51 Dose: 2 unit Morphine Sulfate (Morphine) 2 mg IVP Q4 PRN PRN Reason: Pain, moderate (4-7) Last Admin: 11/05/16 22:23 Dose: 2 mg Ondansetron HCl (Zofran Inj) 4 mg IVP Q4 PRN PRN Reason: Pain, moderate (4-7) - Labs Labs: 11/05/16 08:19 11/05/16 08:19 PT 11.4 SECONDS (9.7-12.2) 11/03/16 20:37 INR 1.0 11/03/16 20:37 APTT 26 SECONDS (21-34) 11/03/16 20:37 - Constitutional Appears: No Acute Distress - Head Exam Head Exam: ATRAUMATIC, NORMAL INSPECTION, NORMOCEPHALIC - Eye Exam Eye Exam: EOMI, Normal appearance, PERRL, Scleral icterus Pupil Exam: NORMAL ACCOMODATION, PERRL - ENT Exam ENT Exam: Mucous Membranes Moist, Normal Exam - Respiratory Exam Respiratory Exam: Clear to Ausculation Bilateral, NORMAL BREATHING PATTERN - Cardiovascular Exam Cardiovascular Exam: REGULAR RHYTHM, +S1, +S2. absent: Murmur Assessment and Plan (1) Acute pancreatitis Assessment & Plan: 51 year old male with a h/o pancreatitis, DM, HTN admitted with recurrent pancreatitis with pancreatic protocol CT showing chronic pancreatitis. Continue aggressive hydration. Advance diet as tolerated. Smoking and alcohol cessation. Status: Acute (2) Pancreatic duct dilated Status: Acute (3) Uncontrolled diabetes mellitus Status: Acute
[2016-11-06] MEDS: (Novolin R) Insulin Human Regular 100 units/ml vial SC SCH ×3 (08:18→17:33)
[2016-11-06] MEDS: Enoxaparin 30 mg Syringe SC SCH (09:10)
[2016-11-06] MEDS: (Lantus) Insulin Glargine, Recombinant SC SCH ×2 (09:11→17:33)
[2016-11-06] MEDS ORDERED: Lactated Ringer's 1,000 ML IV SCH (09:18)
--- NOTE | 2016-11-06 10:22 | CP.PCM.PN ---
<Alvin Cruz - Last Filed: 11/06/16 13:26> Subjective - Date & Time of Evaluation Date of Evaluation: 11/06/16 Time of Evaluation: 08:20 - Subjective Subjective: PGY5 GI Fellow Progress Note Patient seen and examined bedside this morning. The patient admits to continued epigastric pain though admits improved since admission. Tolerating clear liquids and eager to eat more. No nausea, vomiting. No events overnight. 12 system ROS performed and negative except where stated. Objective - Vital Signs/Intake and Output Vital Signs (last 24 hours): Temp Pulse Resp BP Pulse Ox 98.6 F 54 L 18 171/92 H 99 11/06/16 07:35 11/06/16 07:35 11/06/16 07:35 11/06/16 07:35 11/06/16 07:35 Intake and Output: 11/06/16 11/06/16 06:59 18:59 Intake Total 2000 Output Total 825 Balance 1175 - Medications Medications: Current Medications Enoxaparin Sodium (Lovenox) 30 mg SC DAILY [facility] Last Admin: 11/06/16 09:10 Dose: 30 mg Famotidine (Pepcid) 20 mg IVP Q12 [facility] Last Admin: 11/06/16 09:11 Dose: 20 mg Lactated Ringer's (Lactated Ringer's) 1,000 mls @ 125 mls/hr IV .Q8H [facility] Last Admin: 11/06/16 09:51 Dose: 125 mls/hr Insulin Glargine (Lantus) 14 unit SC BID [facility] Last Admin: 11/06/16 09:11 Dose: 14 u Insulin Human Regular (Novolin R) 0 unit SC ACHS [facility] PRN Reason: Protocol Last Admin: 11/06/16 08:18 Dose: 2 unit Morphine Sulfate (Morphine) 2 mg IVP Q4 PRN PRN Reason: Pain, moderate (4-7) Last Admin: 11/05/16 22:23 Dose: 2 mg Ondansetron HCl (Zofran Inj) 4 mg IVP Q4 PRN PRN Reason: Pain, moderate (4-7) - Labs Labs: 11/05/16 08:19 11/05/16 08:19 PT 11.4 SECONDS (9.7-12.2) 11/03/16 20:37 INR 1.0 11/03/16 20:37 APTT 26 SECONDS (21-34) 11/03/16 20:37 - Constitutional Appears: Non-toxic, No Acute Distress - Eye Exam Eye Exam: EOMI, PERRL - ENT Exam ENT Exam: Mucous Membranes Moist - Respiratory Exam Respiratory Exam: Clear to Ausculation Bilateral. absent: Rales, Rhonchi, Wheezes - Cardiovascular Exam Cardiovascular Exam: RRR, +S1, +S2 - GI/Abdominal Exam GI & Abdominal Exam: Soft, Normal Bowel Sounds. absent: Distended, Firm, Guarding, Rigid, Tenderness, Organomegaly - Extremities Exam Extremities Exam: Normal Inspection. absent: Pedal Edema - Neurological Exam Neurological Exam: Alert, Awake, Oriented x3 - Psychiatric Exam Psychiatric exam: Normal Affect, Normal Mood - Skin Skin Exam: Dry, Warm Assessment and Plan - Assessment and Plan (Free Text) Assessment: Patient is a 51yo male with PMHx significant for EtOH pancreatitis, DM, HTN who presented with acute abdominal pain. -Acute Pancreatitis -Dilated pancreatic duct on U/S Plan: -Pancreatic protocol CT showing diffuse atrophy of pancreas with PD dilation likely c/w chronic pancreatitis -Will likely benefit from EUS as outpatient -Will start pancreatic enzymes with meals -Decrease LR to 125cc/hr -Advance diet as tolerated: goal of low fat/low fiber -Analgesia/antiemetics per primary service -OK to D/C from GI standpoint <Triny Navas MD - Last Filed: 11/06/16 22:02> Objective - Vital Signs/Intake and Output Vital Signs (last 24 hours): Temp Pulse Resp BP Pulse Ox 98.9 F 88 20 158/89 H 100 11/06/16 15:11 11/06/16 15:11 11/06/16 15:11 11/06/16 15:11 11/06/16 15:11 - Labs Labs: 11/06/16 10:59 11/06/16 10:59 PT 11.4 SECONDS (9.7-12.2) 11/03/16 20:37 INR 1.0 11/03/16 20:37 APTT 26 SECONDS (21-34) 11/03/16 20:37 Attending/Attestation - Attestation I have personally seen and examined this patient.: Yes I have fully participated in the care of the patient.: Yes I have reviewed all pertinent clinical information, including history, physical exam and plan: Yes Notes (Text): 11/06/16 22:01 Patient seen on rounds with GI fellow. This is a 51yo male with PMHx significant for EtOH pancreatitis, DM, HTN who presented with acute abdominal pain with acute on chronic pancreatitis now resolved. Dilated PD on Ct scan likely due to history of alcoholism. Will likely benefit from EUS as outpatient. Will start pancreatic enzymes with meals. Advance diet as tolerated : goal of low fat/low fiber
[2016-11-06 11:10] LABS: HEMOGLOBIN 13.2 g/dL (12.0-18.0); MEAN CELL VOLUME 98.1 fL (80.0-94.0); MEAN CORPUSCULAR HEMOGLOBIN 33.4 pg (27.0-31.0); MEAN PLATELET VOLUME 10.4 fL (7.2-11.7); RBC 3.96 Mil/uL (4.40-5.90); RED CELL DISTRIBUTION WIDTH 13.8 % (11.5-14.5); WHITE BLOOD COUNT 6.6 K/uL (4.8-10.8)
[2016-11-06 11:20] LABS: ALB/GLOB RATIO 1.1 (1.0-2.1); ALT/SGPT 28 U/L (21-72); AST/SGOT 25 U/L (17-59); BLOOD UREA NITROGEN 9 mg/dL (9-20); GFR AFRICAN-AMERICAN > 60; GFR NON-AFRICAN AMERICAN > 60
[2016-11-06 11:21] LABS: CALCIUM 8.8 mg/dl (8.6-10.4)
[2016-11-06 15:14] VITALS: BP 158/89; PULSE 88; RESP 20; TEMP 98.9; O2SAT 100
[2016-11-06] MEDS ORDERED: Potassium Chloride 20 mEq/15 ml LIQ UD PO ONE ×2 (16:00→17:15)
[2016-11-06] MEDS ORDERED: LIPASE/PROTEASE/AMYLASE 4,200 U ECC PO SCH (16:30)
--- NOTE | 2016-11-06 21:28 | CP.PCM.DIS ---
Provider - Provider Date of Admission: 11/03/16 22:22 Attending physician: Anibal Dewitt MD Primary care physician: Dany Wahl DO Time Spent in preparation of Discharge (in minutes): 45 Diagnosis - Discharge Diagnosis (1) Acute pancreatitis Status: Acute (2) Pancreatic duct dilated Status: Acute (3) Uncontrolled diabetes mellitus Status: Acute Hospital Course - Lab Results Lab Results: Most Recent Lab Values WBC 6.6 K/uL (4.8-10.8) 11/06/16 10:59 RBC 3.96 Mil/uL (4.40-5.90) L 11/06/16 10:59 Hgb 13.2 g/dL (12.0-18.0) 11/06/16 10:59 Hct 38.9 % (35.0-51.0) 11/06/16 10:59 MCV 98.1 fL (80.0-94.0) H 11/06/16 10:59 MCH 33.4 pg (27.0-31.0) H 11/06/16 10:59 MCHC 34.0 g/dL (33.0-37.0) 11/06/16 10:59 RDW 13.8 % (11.5-14.5) 11/06/16 10:59 Plt Count 192 K/uL (130-400) 11/06/16 10:59 MPV 10.4 fL (7.2-11.7) 11/06/16 10:59 Neut % (Auto) 89.9 % (50.0-75.0) H 11/05/16 08:19 Lymph % (Auto) 8.4 % (20.0-40.0) L 11/05/16 08:19 Love % (Auto) 1.6 % (0.0-10.0) 11/05/16 08:19 Eos % (Auto) 0.0 % (0.0-4.0) 11/05/16 08:19 Baso % (Auto) 0.1 % (0.0-2.0) 11/05/16 08:19 Neut # 5.1 K/uL (1.8-7.0) 11/05/16 08:19 Lymph # 0.5 K/uL (1.0-4.3) L 11/05/16 08:19 Love # 0.1 K/uL (0.0-0.8) 11/05/16 08:19 Eos # 0.0 K/uL (0.0-0.7) 11/05/16 08:19 Baso # 0.0 K/uL (0.0-0.2) 11/05/16 08:19 Neutrophils % (Manual) 93 % (50-75) H 11/05/16 08:19 Lymphocytes % (Manual) 6 % (20-40) L 11/05/16 08:19 Monocytes % (Manual) 1 % (0-10) 11/05/16 08:19 Platelet Estimate Normal (NORMAL) 11/05/16 08:19 Large Platelets Present 11/05/16 08:19 Giant Platelets Present 11/05/16 08:19 Anisocytosis (manual) Slight 11/05/16 08:19 PT 11.4 SECONDS (9.7-12.2) 11/03/16 20:37 INR 1.0 11/03/16 20:37 APTT 26 SECONDS (21-34) 11/03/16 20:37 Sodium 139 mmol/L (132-148) 11/06/16 10:59 Potassium 3.0 mmol/L (3.6-5.2) L 11/06/16 10:59 Chloride 99 mmol/L (98-107) 11/06/16 10:59 Carbon Dioxide 27 mmol/L (22-30) 11/06/16 10:59 Anion Gap 16 (10-20) 11/06/16 10:59 BUN 9 mg/dL (9-20) 11/06/16 10:59 Creatinine 0.6 MG/DL (0.8-1.5) L 11/06/16 10:59 Est GFR ( Amer) > 60 11/06/16 10:59 Est GFR (Non-Af Amer) > 60 11/06/16 10:59 POC Glucose (mg/dL) 278 mg/dL (65-110) H 11/06/16 16:57 Random Glucose 202 mg/dL (75-110) H 11/06/16 10:59 Calcium 8.8 mg/dl (8.6-10.4) 11/06/16 10:59 Total Bilirubin 0.6 mg/dL (0.2-1.3) 11/06/16 10:59 AST 25 U/L (17-59) 11/06/16 10:59 ALT 28 U/L (21-72) 11/06/16 10:59 Alkaline Phosphatase 67 U/L (38-126) 11/06/16 10:59 Total Protein 5.8 g/dL (6.3-8.3) L 11/06/16 10:59 Albumin 3.0 g/dL (3.5-5.0) L 11/06/16 10:59 Globulin 2.8 gm/dL (2.2-3.9) 11/06/16 10:59 Albumin/Globulin Ratio 1.1 (1.0-2.1) 11/06/16 10:59 Triglycerides 222 mg/dL (0-149) H 11/05/16 08:19 Cholesterol 203 mg/dL (0-199) H 11/05/16 08:19 LDL Cholesterol Direct 125 mg/dL (0-129) 11/05/16 08:19 HDL Cholesterol 41 mg/dL (30-70) 11/05/16 08:19 Lipase 1420 U/L (23-300) H 11/03/16 20:37 Urine Color Yellow (YELLOW) 11/03/16 20:37 Urine Clarity Clear (Clear) 11/03/16 20:37 Urine pH 6.0 (5.0-8.0) 11/03/16 20:37 Ur Specific [place] 1.033 (1.003-1.030) H 11/03/16 20:37 Urine Protein 2+ mg/dL (NEGATIVE) H 11/03/16 20:37 Urine Glucose (UA) 3+ mg/dL (Normal) H 11/03/16 20:37 Urine Ketones Trace mg/dL (NEGATIVE) 11/03/16 20:37 Urine Blood Negative (NEGATIVE) 11/03/16 20:37 Urine Nitrate Negative (NEGATIVE) 11/03/16 20:37 Urine Bilirubin Negative (NEGATIVE) 11/03/16 20:37 Urine Urobilinogen Normal mg/dL (0.2-1.0) 11/03/16 20:37 Ur Leukocyte Esterase Trace Kj/uL (Negative) H 11/03/16 20:37 Urine WBC (Auto) 5 /hpf (0-5) 11/03/16 20:37 Urine RBC (Auto) < 1 /hpf (0-3) 11/03/16 20:37 Ur Squamous Epith Cells < 1 /hpf (0-5) 11/03/16 20:37 Urine Bacteria Rare (<OCC) 11/03/16 20:37 Urine Opiates Screen Negative (NEGATIVE) 11/04/16 01:34 Urine Methadone Screen Negative (NEGATIVE) 11/04/16 01:34 Ur Barbiturates Screen Negative (NEGATIVE) 11/04/16 01:34 Ur Phencyclidine Scrn Negative (NEGATIVE) 11/04/16 01:34 Ur Amphetamines Screen Negative (NEGATIVE) 11/04/16 01:34 U Benzodiazepines Scrn Negative (NEGATIVE) 11/04/16 01:34 U Oth Cocaine Metabols Negative (NEGATIVE) 11/04/16 01:34 U Cannabinoids Screen Negative (NEGATIVE) 11/04/16 01:34 Discharge Exam - Head Exam Head Exam: ATRAUMATIC, NORMAL INSPECTION, NORMOCEPHALIC Discharge Plan - Follow Up Plan Condition: SERIOUS Disposition: HOME/ ROUTINE Instructions: Pancreatitis (DC), Liver Disease Diet (DC) Referrals: Dany Wahl DO [Primary Care Provider] - Etienne Dacosta MD [Staff Provider] - 2 Weeks
== END 2016-11-06 18:00 | disposition home or self-care (01) | DRG 204 ==
LOC: SUPCPDRO 19:10 → C.ER 19:10 → C.9E 22:22 → C.6T 11-04 00:58
PROVIDERS: ADMIT Internal Medicine; ATTEND Internal Medicine
DX: K85.20 Alcohol induced acute pancreatitis without necrosis or infection (principal); E11.65 Type 2 diabetes mellitus with hyperglycemia; I10 Essential (primary) hypertension; K86.1 Other chronic pancreatitis; F10.10 Alcohol abuse, uncomplicated; Z72.0 Tobacco use; Z79.84 Long term (current) use of oral hypoglycemic drugs